=== PATIENT | female | born 1970 | race Caucasian/White ===

== ENCOUNTER 2018-11-21 13:39 | Emergency (ER) | payer BC ==
[~2018-11-21] VITALS: Ht 160 cm; Wt 56.5 kg
[2018-11-21 13:42] VITALS: BP 105/61
[2018-11-21] MEDS ORDERED: IBUPROFEN 600 MG TABLET PO ONE (14:30)
[2018-11-21] MEDS ORDERED: IBUPROFEN 200 MG TABLET ONE (14:42)
--- NOTE | 2018-11-21 15:42 | NUR ---
Patient/Caregiver given discharge instructions and they have confirmed that they understand the instructions. Patient ambulatory with steady gait.
== END 2018-11-21 15:44 | disposition home or self-care (01) ==
LOC: ED 15:33
DX: S16.1XXA Strain of muscle, fascia and tendon at neck level, initial encounter (principal); S00.93XA Contusion of unspecified part of head, initial encounter; S10.93XA Contusion of unspecified part of neck, initial encounter; S30.0XXA Contusion of lower back and pelvis, initial encounter; M51.36 Other intervertebral disc degeneration, lumbar region; W18.09XA Striking against other object with subsequent fall, initial encounter; Y93.89 Activity, other specified; Y92.098 Other place in other non-institutional residence as the place of occurrence of the external cause; Y99.8 Other external cause status
CPT/HCPCS: 70450; 72110; 72125; 99284